=== PATIENT | male | born 1955 | race Caucasian/White ===

== ENCOUNTER 2018-12-15 22:47 | Emergency (ER) | payer OTHER ==
[~2018-12-15] VITALS: Ht 177.8 cm; Wt 95.2 kg
[~2018-12-15 22:47] MED LIST: AMLO5 PO; ASPI81CH PO; ATOR20 PO; CLON.1 PO; Diovan40 MG PO; FLAX PO; VITAMIN D-32000 UNI1 PO
[2018-12-15 23:17] LABS: Source, Urine Clean Catch
[2018-12-15 23:19] LABS: Appearance, Urine Hazy (Clear); Bilirubin, Urine Neg (Neg); Blood, Urine 5+ (Neg); Color, Urine Yellow (P-Yellow); Glucose Qualitative, Urine 1+ (Neg); Ketones, Urine 1+ (Neg); Leukocyte Esterase, Urine 1+ (Neg); Nitrite, Urine Neg (Neg); Protein, Urine 2+ (Neg); Specific Gravity, Urine 1.015 (1.003-1.022); Urobilinogen, Urine NORM (Normal)
[2018-12-15 23:21] LABS: BASOPHILS ABSOLUTE AUTO 0.05 K/mm3 (0.00-0.23); BASOPHILS PERCENT AUTO 0 % (0-2); EOSINOPHILS ABSOLUTE AUTO 0.03 K/mm3 (0.00-0.68); EOSINOPHILS PERCENT AUTO 0 % (0-6); Hematocrit 45.1 % (37.0-53.0); Hemoglobin 15.1 g/dL (13.5-17.5); IMMATURE GRAN ABSOLUTE AUTO 0.06 K/mm3 (0.00-0.10); IMMATURE GRAN PERCENT AUTO 1 % (0-1); LYMPHOCYTES ABSOLUTE AUTO 1.67 K/mm3 (0.84-5.20); LYMPHOCYTES PERCENT AUTO 13 % (21-46); MONOCYTES ABSOLUTE AUTO 0.43 K/mm3 (0.16-1.47); MONOCYTES PERCENT AUTO 3 % (4-13); Mean Corpuscular HGB 31.9 pg (26.0-34.0); Mean Corpuscular HGB Conc 33.5 g/dL (31.5-36.5); Mean Corpuscular Volume 95 fL (80-100); Mean Platelet Volume 9.1 fL (9.1-12.4); NEUTROPHILS ABSOLUTE AUTO 10.25 K/mm3 (1.96-9.15); NEUTROPHILS PERCENT AUTO 82 % (41-73); Platelet Count 311 K/mm3 (150-400); RDW Coefficient Variation 12.4 % (11.7-14.2); Red Blood Cell Count 4.74 M/mm3 (4.30-5.90); White Blood Cell Count 12.49 K/mm3 (4.00-11.30)
[2018-12-15 23:25] LABS: Bacteria Many /hpf; Mucus Light (0-Heavy); Red Blood Cells, Urine TNTC /hpf (0-2); Squamous Epithelial Cells Not Seen /hpf (Few)
[2018-12-15 23:33] LABS: Albumin, Blood 4.4 g/dL (3.4-5.0); Bilirubin, Total 1.2 mg/dL (0.1-1.0); Bun/Creatinine Ratio 12.4 (12.0-20.0); Calcium, Blood 8.7 mg/dL (8.5-10.1); Creatinine, Blood 1.29 mg/dL (0.60-1.20); Globulin, Blood 4.2 g/dL (2.2-4.0); Potassium, Blood 3.9 mmol/L (3.5-5.5); Total Protein, Blood 8.6 g/dL (6.4-8.2)
[2018-12-16] MEDS ORDERED: Flomax0.4 MG PO (01:12)
[2018-12-16] MEDS ORDERED: Norco 5-325 Ta1 EACH PO (01:12)
[2018-12-16] MEDS ORDERED: KETO10 PO (01:12)
== END 2018-12-16 02:50 | disposition home or self-care (01) ==
LOC: ER 22:47
PROVIDERS: Emergency Medicine
DX: N13.2 Hydronephrosis with renal and ureteral calculous obstruction (principal); Z88.5 Allergy status to narcotic agent; Z79.899 Other long term (current) drug therapy; Z79.82 Long term (current) use of aspirin
CPT/HCPCS: 36415; 74176; 80053; 81001; 85025; 87086; 96361; 96365; 96375; 99284-25; A9270; J0696; J1170; J1885; J2405; J3010; J7030

== ENCOUNTER → 2019-02-07 | Outpatient (CLI) | payer OTHER ==
[~2019-02-07] MED LIST changes: +Flomax0.4 MG PO; +KETO10 PO; +Norco 5-325 Ta1 EACH PO
[2019-02-14 11:07] LABS: BRUSHITE 0.77 ratio (0.00-3.00); CALCIUM OXALATE 5.09 ratio (0.00-6.00); CALCIUM, URINE 10.1 mg/dL (Not Estab.); CALCIUM, URINE 282.8 mg/24 hr (100.0-300.0); CHLORIDE URINE 92 (110-250); CITRIC ACID (CITRATE) 121 mg/L (Not Estab.); CITRIC ACID(CITRATE) 339 mg/24 hr (320-1240); CREATININE, URINE 1355.2 mg/24 hr (1000.0-2000.0); CREATININE, URINE 48.4 mg/dL (Not Estab.); MAGNESIUM, URINE 4.1 mg/dL (Not Estab.); MONOSODIUM URATE 0.51 ratio (0.00-4.00); OSMOLALITY, URINE 278 (300-900); SODIUM, URINE 101 (58-337); SODIUM, URINE 36 mmol/L (Not Estab.); STRUVITE 0.01 ratio (0.00-1.00); URINE VOLUME 2800 mL/24 hr (800-1800); URINE VOLUME (PRESERVATIVE) 2800 mL/24 hr (800-1800)
== END | disposition home or self-care (01) ==
LOC: LAB 09:57 → LAB SHORT 09:57
PROVIDERS: Urology
DX: N20.0 Calculus of kidney (principal)
CPT/HCPCS: 81003; 81050; 82131; 82140; 82340; 82436; 82507; 82570; 83735; 83935; 83945; 84105; 84133; 84300; 84392; 84560